=== PATIENT | male | born 2000 | race Caucasian/White ===

== ENCOUNTER 2021-07-13 16:14 | Outpatient (REF) | payer OTHER, SELFPAY ==
[2021-07-15 10:41] LABS: COVID-19 RT-PCR UVMMC Result Negative (Negative)
== END 2021-07-13 16:15 | disposition home or self-care (01) ==
LOC: NCHCN 16:14
PROVIDERS: Visit Provider Physician Assistant Medical
DX: Z20.822 Contact with and (suspected) exposure to COVID-19 (principal); Z11.52 Encounter for screening for COVID-19
CPT/HCPCS: U0003

== ENCOUNTER 2021-09-20 19:34 | Outpatient (REF) | payer OTHER, SELFPAY ==
[2021-09-21 12:31] LABS: COVID-19 RT-PCR UVMMC Result Negative (Negative)
== END 2021-09-20 19:35 | disposition home or self-care (01) ==
LOC: NCHCN 19:34
PROVIDERS: Visit Provider Physician Assistant Medical
DX: Z20.822 Contact with and (suspected) exposure to COVID-19 (principal)
CPT/HCPCS: U0003

== ENCOUNTER 2021-09-21 15:16 | Outpatient (REF) | payer OTHER, SELFPAY ==
[2021-09-23 18:57] LABS: COVID-19 RT-PCR UVMMC Result Negative (Negative)
== END 2021-09-21 15:17 | disposition home or self-care (01) ==
LOC: NCHCN 15:16
PROVIDERS: Visit Provider Physician Assistant Medical
DX: Z20.822 Contact with and (suspected) exposure to COVID-19 (principal)
CPT/HCPCS: U0003

== ENCOUNTER 2021-11-14 17:00 | Outpatient (REF) | payer OTHER, SELFPAY ==
[2021-11-16 12:39] LABS: COVID-19 RT-PCR UVMMC Result Negative (Negative)
== END 2021-11-14 17:01 | disposition home or self-care (01) ==
LOC: NCHCN 17:00
PROVIDERS: Visit Provider Physician Assistant Medical
DX: Z20.822 Contact with and (suspected) exposure to COVID-19 (principal)
CPT/HCPCS: U0003

== ENCOUNTER 2021-11-15 18:31 | Outpatient (REF) | payer OTHER, SELFPAY ==
[2021-11-17 11:32] LABS: COVID-19 RT-PCR UVMMC Result Negative (Negative)
== END 2021-11-15 18:32 | disposition home or self-care (01) ==
LOC: NCHCN 18:31
PROVIDERS: Visit Provider Physician Assistant Medical
DX: Z20.822 Contact with and (suspected) exposure to COVID-19 (principal)
CPT/HCPCS: U0003